=== PATIENT | female | born 1955 | race Caucasian/White ===

== ENCOUNTER 2019-01-05 17:56 | Observation (INO) | payer MEDICAID, OTHER ==
[~2019-01-05] VITALS: Ht 165.1 cm; Wt 73.9 kg
[2019-01-05 18:02] VITALS: BP 135/81
--- NOTE | 2019-01-05 18:10 | NUR ---
arrived to ed c/o chest pain x yesterday. rates 7/10 and desricbes it as squeezing. no resp distress noted. chest pain starts left upper and radiates to center of chest. vss. heart sound s1s2 present. pmh: dm allergies: norco.
--- NOTE | 2019-01-05 18:10 | NUR ---
PT AMBULATED TO BED 6.
--- NOTE | 2019-01-05 18:10 | NUR ---
Dallin gentile in ED - 01/05/19 at 1811 by [facility] PT TAKEN TO BED 6.
--- NOTE | 2019-01-05 19:20 | NUR ---
Pt report given to jeffery nino. Transfer of care at this time.
--- NOTE | 2019-01-05 19:21 | NUR ---
BEDSIDE REPORT RECEIVED FROM JACKELINE RAYO. ASSUMED CARE AT THIS TIME. PT AWAKE AND ALERT. VSS. PT DAUGHTER AT BEDSIDE. ALL NEEDS MET AT THIS TIME. WILL CONTINUE TO MONITOR.
[2019-01-05] MEDS ORDERED: ONDANSETRON 4 MG/2 ML VIAL IVP ONE (19:25)
[2019-01-05] MEDS ORDERED: ASPIRIN 81 MG TAB.CHEW PO ONE (19:25)
[2019-01-05] MEDS ORDERED: MORPHINE SULFATE 2 MG/ML SYR IVP ONE (19:25)
[2019-01-05 20:15] LABS: BASOPHILS # (AUTO) 0.1 K/uL (0.00-0.22); BASOPHILS % (AUTO) 0.7 % (0.0-2.0); EOSINOPHILS # (AUTO) 0.2 K/uL (0-0.4); EOSINOPHILS % (AUTO) 1.9 % (0.0-4.0); HEMATOCRIT 39.8 % (36-48); HEMOGLOBIN 13.3 g/dL (12.0-16.0); LYMPHOCYTES # (AUTO) 2.5 K/uL (2.5-16.5); LYMPHOCYTES % (AUTO) 27.3 % (20.5-51.1); MEAN CORPUSCULAR HEMOGLOBIN 29 pg (27-31); MEAN CORPUSCULAR HGB CONC 34 g/dL (33-37); MEAN CORPUSCULAR VOLUME 87.6 fL (80-94); MONOCYTES # (AUTO) 0.6 K/uL (0.8-1.0); MONOCYTES % (AUTO) 6.6 % (1.7-9.3); NEUTROPHILS # (AUTO) 5.8 K/uL (1.8-7.7); NEUTROPHILS % (AUTO) 63.5 % (42.2-75.2); PLATELET COUNT (AUTO) 292 K/uL (140-450); RED BLOOD CELL COUNT(AUTO) 4.54 MIL/uL (4.20-5.40); RED CELL DISTRIBUTION WIDTH 13.2 % (11.6-13.7); WHITE BLOOD COUNT (AUTO) 9.2 K/uL (4.8-10.8)
[2019-01-05 20:36] LABS: ALBUMIN 3.5 g/dL (3.4-5.0); CARBON DIOXIDE 26.9 mmol/L (21-32); CREATININE 0.7 mg/dL (0.6-1.3); POTASSIUM 3.9 mmol/L (3.5-5.1); TOTAL BILIRUBIN 0.2 mg/dL (0.0-1.0)
[2019-01-05] MEDS ORDERED: ALUMINUM HYD/MAG/SIMETHICONE 30 ML UDC PO PRN (21:00)
[2019-01-05] MEDS ORDERED: ZOLPIDEM 5 MG TAB PO PRN (21:00)
[2019-01-05] MEDS ORDERED: NITROGLYCERIN 0.4 MG TAB SL PRN (21:00)
[2019-01-05] MEDS ORDERED: ALBUTEROL 0.083% 2.5 MG/3 ML NEBU INH PRN (21:00)
[2019-01-05] MEDS ORDERED: DEXTROSE 50% 50 ML SYR IVP PRN (21:00)
[2019-01-05] MEDS ORDERED: LORazepam 1 MG TAB PO PRN (21:00)
[2019-01-05] MEDS ORDERED: ONDANSETRON 4 MG/2 ML VIAL IVP PRN (21:00)
[2019-01-05] MEDS ORDERED: INSULIN LISPRO SLIDING SCALE 100 UNITS/ML VIAL SUBQ PRN (21:00)
[2019-01-05] MEDS ORDERED: KETOROLAC 30 MG/ML VIAL IVP PRN (21:00)
[2019-01-05] MEDS ORDERED: ATOR40TA PO (21:16)
[2019-01-05] MEDS ORDERED: GLIP10TA3 PO (21:16)
[2019-01-05] MEDS ORDERED: METF500S6 PO (21:16)
[2019-01-05] MEDS ORDERED: INSU100S5 SQ (21:16)
--- NOTE | 2019-01-05 21:55 | NUR ---
PT ARRIVED AT UNIT VIA GURNEY, PT AMBULATED TO BED, TOLERATED WELL, REPORT RECEIVED FROM ER NURSE JANEE RN, PT STABLE, NO DISTRESS NOTED, IV TO L HAND 22G PATENT INTACT, SL, PT ON ROOM AIR, NO SOB NOTED, PT STATED HAVING NO PAIN AT THIS MOMENT, DRESSING NOTED TO L FOOT WILL TAKE PICTURE LATER. ORIENT PT TO ROOM, CALL LIGHT, BED AND RESTROOM, PT STATED UNDERSTANDING, MRSA SWAB TAKEN, INITIAL ASSESSMENT DONE, ALL SAFETY PRECAUTION MET, CALL LIGHT WITHIN REACH, WILL CONTINUE TO MONITOR.
--- NOTE | 2019-01-05 21:59 | NUR ---
Patient will be admitted to care of Dr. España. Admited to [facility]. Will go to room 119B. Belongings list completed. Report to JACKELINE Amin. Transfer of care at this time.
[2019-01-05 22:00] VITALS: BP 145/67
[2019-01-05] MEDS ORDERED: METOPROLOL 50 MG TAB PO SCH (22:15)
[2019-01-05] MEDS: BLOOD GLUCOSE MONITORING 1 DEV DEV FS SCH (22:32)
[2019-01-05] MEDS: METOPROLOL 50 MG TAB PO SCH (22:40)
--- NOTE | 2019-01-05 22:40 | NUR ---
DUE MEDICATION ADMINISTERED, PT TOLERATED WELL, NO DISTRESS NOTED, CALL LIGHT WITHIN REACH, WILL CONTINUE TO MONITOR
[2019-01-06] VITALS: BP 129/65
--- NOTE | 2019-01-06 00:02 | NUR ---
CHECKED ON PT, PT SLEEPING, V/S TAKEN, WNL, CALL LIGHT WITHIN REACH, WILL CONTINUE TO MONITOR.
--- NOTE | 2019-01-06 02:16 | NUR ---
CHECKED ON PT, PT SLEEPING, EASY TO ARROUSE, NO DISTRESS NOTED, CALL LIGHT WITHIN REACH, WILL CONTINUE TO MONITOR.
[2019-01-06 04:00] VITALS: BP 125/60
--- NOTE | 2019-01-06 04:08 | NUR ---
PT RESTING, NO DISTRESS NOTED, V/S TAKEN, WNL, CALL LIGHT WITHIN REACH, WILL CONTINUE TO MONITOR.
[2019-01-06] MEDS: BLOOD GLUCOSE MONITORING 1 DEV DEV FS SCH ×2 (05:28→11:34)
--- NOTE | 2019-01-06 06:08 | NUR ---
PT SLEEPING, NO DISTRESS NOTED, CALL LIGHT WITHIN REACH, WILL CONTINUE TO MONITOR.
[2019-01-06 06:21] LABS: BASOPHILS % (AUTO) 0.5 % (0.0-2.0); EOSINOPHILS # (AUTO) 0.2 K/uL (0-0.4); EOSINOPHILS % (AUTO) 2.1 % (0.0-4.0); HEMATOCRIT 37.8 % (36-48); HEMOGLOBIN 12.6 g/dL (12.0-16.0); LYMPHOCYTES # (AUTO) 2.7 K/uL (2.5-16.5); LYMPHOCYTES % (AUTO) 29.1 % (20.5-51.1); MEAN CORPUSCULAR HEMOGLOBIN 29 pg (27-31); MEAN CORPUSCULAR HGB CONC 33 g/dL (33-37); MEAN CORPUSCULAR VOLUME 87.6 fL (80-94); MONOCYTES # (AUTO) 0.7 K/uL (0.8-1.0); MONOCYTES % (AUTO) 7.9 % (1.7-9.3); NEUTROPHILS # (AUTO) 5.7 K/uL (1.8-7.7); NEUTROPHILS % (AUTO) 60.4 % (42.2-75.2); PLATELET COUNT (AUTO) 291 K/uL (140-450); RED BLOOD CELL COUNT(AUTO) 4.32 MIL/uL (4.20-5.40); RED CELL DISTRIBUTION WIDTH 13.1 % (11.6-13.7); WHITE BLOOD COUNT (AUTO) 9.4 K/uL (4.8-10.8)
[2019-01-06 07:11] LABS: ALBUMIN 3.2 g/dL (3.4-5.0); ANION GAP 14.1 (8-16); CARBON DIOXIDE 24.9 mmol/L (21-32); CREATININE 0.6 mg/dL (0.6-1.3); TOTAL BILIRUBIN 0.3 mg/dL (0.0-1.0)
--- NOTE | 2019-01-06 07:25 | NUR ---
ENDORSED PT TO DAY SHIFT NURSE DAVIDA RN, PT STABLE, NO DISTRESS NOTED, CALL LIGHT WITHIN REACH.
--- NOTE | 2019-01-06 07:26 | NUR ---
RECEIVED REPORT FROM FOOD SERVICE TECHNICIAN NURSE. PT [id number]. PT ON PROJECT ECONOMIST. IV ON LT HAND 22 GA ON SALINE LOCK, FLUSHING WITH NO RESISTANCE. ABD SOFT, BS ACTIVE, LBM 01/05. SKIN IS INTACT, WARM TO TOUCH. SAFETY MEASURES IN PLACE, CALL LIGHT WITHIN REACH. REVIEWED POC WITH PT, PT VERBALIZED UNDERSTANDING.
[2019-01-06 08:00] VITALS: BP 116/58
--- NOTE | 2019-01-06 09:08 | NUR ---
PATIENT HAS BEEN SCREENED AND CATEGORIZED HIGH NUTRITION RISK. PATIENT WILL BE SEEN WITHIN 1-2 DAYS OF ADMISSION. 01/06/19-01/07/[address]
[2019-01-06] MEDS: METOPROLOL 50 MG TAB PO SCH (09:10)
--- NOTE | 2019-01-06 09:10 | NUR ---
ADMINISTERED LOPRESSOR PER ORDER, PT IS AWARE OF INDICATIONS AND POTENTIAL SIDE EFFECTS. WILL CONTINUE TO MONITOR.
--- NOTE | 2019-01-06 09:20 | NUR ---
WOUND CARE EVALUATION DONE WITH THIS 63 Y/O FEMALE , AAX4. PER PT. LEFT BUNION SURGERY WAS DONE THIS MONTH ON 12/22/2018, SHE HAD FOLLOWED UP APPOINTMENT ONCE AND WILL BE GOING AGAIN ON NEXT WEDNESDAY WITH DR. CLAUDIA HARTLEY. LEFT S/P BUNION SURGICAL WOUND, SUTURES IN PLACE WOUND DRY AND CLEAN, NO S/S OF INFECTION, NO S/S OF WOUND DEHISCENCE, NIHARIKA WOUND SKIN INTACT. LEFT HALLUX WITH MULTIPLE STERI STRIPS IN PLACE DRY AND CLEAN, UNABLE TO ASSESS DUE TO STERI STRIPS COVERED.RECOMMENDATION TO KEEP WOUNDS CLEAN AND DRY AT ALL TIMES, APPLY ISLAND DRESSING QD AND PRN, FOLLOW UP WITH OUT PATIENT SURGEON FOR REMOVING SUTURES, PT. VERBALIZES UNDERSTANDING, PRIMARY RN NOTIFIED.
--- NOTE | 2019-01-06 10:30 | NUR ---
NOTIFIED PT THAT PHYSICIAN COMES AROUND NOON OR AFTER. WILL CONTINUE TO PROVIDE UPDATES.
[2019-01-06 12:00] VITALS: BP 121/59
--- NOTE | 2019-01-06 12:47 | NUR ---
WOUND ASSESSMENT DONE, DRESSING CLEAN, DRY AND INTACT. PT HAS FOLLOW-UP APPOINTMENT WITH SURGEON THIS WEEK FOR S/P BUNION SURGERY.
--- NOTE | 2019-01-06 14:20 | NUR ---
PT HAS BEEN DISCHARGED. ALL PAPERWORK SIGNED, ALL QUESTIONS ANSWERED. ALL BELONGINGS IN PT POSSESSION. IV DISCONTINUED WITH CANNULA INTACT. WRISTBANDS AND TELE MONITOR REMOVED. PT REFUSED WHEELCHAIR. AMBULATED OUT OF UNITY WITH UNSTEADY GAIT, DAUGHTER AT SIDE. PT IN STABLE CONDITION.
--- NOTE | 2019-01-06 14:58 | NUR ---
01/06/19 RD INITIAL ASSESSMENT COMPLETED PLEASE REFER TO NUTRITION ASSESSMENT UNDER CARE ACTIVITY FOR ESTIMATED NUTRITIONAL NEEDS. 1. CONTINUE CCHO 60 GM DIET TOLERATED 2. [facility] WILL PROVIDE DOUBLE PORTIONS OF PROTEIN FOR WOUND HEALING 3. RD PROVIDED DIABETES NUTRITION EDUCATION 4. RD TO FOLLOW-UP 5-7 DAYS, LOW RISK [address]
== END 2019-01-06 14:20 | disposition still patient (30) ==
LOC: MED 17:56 → MTU 21:40
PROVIDERS: ADMIT Internal Medicine Pulmonary Disease; ATTEND Internal Medicine Pulmonary Disease
DX: R07.9 Chest pain, unspecified (principal); I10 Essential (primary) hypertension; E11.9 Type 2 diabetes mellitus without complications; Z79.82 Long term (current) use of aspirin; Z88.5 Allergy status to narcotic agent; Z88.6 Allergy status to analgesic agent
CPT/HCPCS: 36415; 71045; 80053; 82948; 83690; 84484; 85025; 87081; 93005; 96372; 99285; G0378; J1815; Q0092; J1885; J2270; J2405

== ENCOUNTER 2021-08-24 07:23 | Observation (INO) | payer OTHER ==
[~2021-08-24] VITALS: Ht 162.6 cm; Wt 66.8 kg
[~2021-08-24 07:23] MED LIST: ATOR40TA PO; GLIP10TA3 PO; INSU100S5 SQ; METF500S6 PO
[2021-08-24 07:31] VITALS: BP 188/80
[2021-08-24] MEDS ORDERED: ASPIRIN 81 MG TAB.CHEW PO ONE (07:40)
[2021-08-24] MEDS ORDERED: KETOROLAC 30 MG/ML VIAL IVP ONE (07:45)
[2021-08-24] MEDS ORDERED: ONDANSETRON 4 MG/2 ML VIAL IVP ONE ×2 (07:45→08:45)
[2021-08-24 08:13] LABS: BASOPHILS # (AUTO) 0.1 K/uL (0.00-0.22); BASOPHILS % (AUTO) 1.1 % (0.0-2.0); EOSINOPHILS # (AUTO) 0.1 K/uL (0-0.4); EOSINOPHILS % (AUTO) 0.9 % (0.0-4.0); HEMATOCRIT 43.7 % (36-48); HEMOGLOBIN 14.7 g/dL (12.0-16.0); LYMPHOCYTES # (AUTO) 2.3 K/uL (2.5-16.5); LYMPHOCYTES % (AUTO) 32.9 % (20.5-51.1); MEAN CORPUSCULAR HEMOGLOBIN 29 pg (27-31); MEAN CORPUSCULAR HGB CONC 34 g/dL (33-37); MEAN CORPUSCULAR VOLUME 86.7 fL (80-94); MONOCYTES # (AUTO) 0.6 K/uL (0.8-1.0); MONOCYTES % (AUTO) 8.6 % (1.7-9.3); NEUTROPHILS # (AUTO) 3.9 K/uL (1.8-7.7); NEUTROPHILS % (AUTO) 56.5 % (42.2-75.2); PLATELET COUNT (AUTO) 206 K/uL (140-450); RED BLOOD CELL COUNT(AUTO) 5.04 MIL/uL (4.20-5.40); RED CELL DISTRIBUTION WIDTH 13.2 % (11.6-13.7); WHITE BLOOD COUNT (AUTO) 6.9 K/uL (4.8-10.8)
[2021-08-24 08:34] LABS: ALBUMIN 3.9 g/dL (3.4-5.0); ANION GAP 13.5 (8-16); CREATININE 0.7 mg/dL (0.6-1.3); POTASSIUM 3.5 mmol/L (3.5-5.1); TOTAL BILIRUBIN 0.5 mg/dL (0.0-1.0)
[2021-08-24] MEDS ORDERED: MORPHINE SULFATE 4 MG/ML SYR IVP ONE (08:45)
[2021-08-24 10:55] VITALS: BP 118/47
[2021-08-24] MEDS ORDERED: HYDROcodone/APAP 5/325 MG 1 TAB TAB PO PRN (11:25)
[2021-08-24] MEDS ORDERED: ACETAMINOPHEN 325 MG TAB PO PRN (11:25)
[2021-08-24] MEDS ORDERED: ONDANSETRON 4 MG/2 ML VIAL IVP PRN (11:25)
[2021-08-24] MEDS ORDERED: MORPHINE SULFATE 4 MG/ML SYR IVP PRN (11:25)
[2021-08-24] MEDS ORDERED: IBUPROFEN 400 MG TAB PO PRN (12:10)
[2021-08-24] MEDS ORDERED: LOVENOX 1MG/KG Q12H SUBQ SCH (14:05)
[2021-08-24] MEDS ORDERED: ASPIRIN 81 MG TAB.CHEW PO SCH (14:13)
[2021-08-24 16:00] VITALS: BP 102/50
[2021-08-24] MEDS ORDERED: LOV60I SUBQ (19:08)
[2021-08-24] MEDS ORDERED: IBUP-2216 PO (19:08)
[2021-08-24] MEDS ORDERED: LISI5TAB24 PO (19:08)
[2021-08-24] MEDS ORDERED: LIP80 PO (19:08)
[2021-08-24] MEDS ORDERED: ASPI81CT95 PO (19:08)
[2021-08-24 20:00] VITALS: BP 142/75
[2021-08-24] MEDS ORDERED: ENOXAPARIN 60 MG/0.6 ML SYR SUBQ SCH (21:00)
[2021-08-25] MEDS ORDERED: ECOTRIN 81 MG TABEC PO SCH (09:00)
[2021-08-25] MEDS ORDERED: lisinopriL 5 MG TAB PO SCH (09:00)
[2021-08-25] MEDS ORDERED: ATORVASTATIN 80 MG TAB PO SCH (09:00)
[2021-08-25] MEDS ORDERED: ENOXAPARIN 40 MG/0.4 ML SYR SUBQ SCH (09:00)
== END 2021-08-24 21:20 | disposition short-term general hospital (02) ==
LOC: MED 07:23 → INTOOBSV 10:20 → MTU 10:20
PROVIDERS: ADMIT Student in an Organized Health Care Education/Training Program; ATTEND Student in an Organized Health Care Education/Training Program
DX: I21.4 Non-ST elevation (NSTEMI) myocardial infarction (principal); Z20.822 Contact with and (suspected) exposure to COVID-19; R07.89 Other chest pain; E11.65 Type 2 diabetes mellitus with hyperglycemia; R11.2 Nausea with vomiting, unspecified; E78.5 Hyperlipidemia, unspecified; Z79.4 Long term (current) use of insulin; Z79.899 Other long term (current) drug therapy
CPT/HCPCS: 36415; 71045; 80053; 82948; 83880; 84484; 85025; 87081; 87426; 93005; 96372; 96374; 96375; 96376; 99285; G0378; J1650; J1885; J2270; J2405; Q0092